=== PATIENT | male | born 2000 | race Caucasian/White ===

== ENCOUNTER 2018-08-08 15:53 | Emergency (ER) | payer BC, SELFPAY ==
[2018-08-08 15:55] VITALS: BP 123/73; PULSE 81; RESP 16; TEMP 36.8; O2SAT 98
--- NOTE | 2018-08-08 16:02 | W.ED.GENAD ---
Discharge Plan Disposition Patient Disposition: HOME Condition: Improving Discharge Details Chief Complaint: Orthopedic Clinical Impression: Closed fracture of right distal radius Primary Care Provider: Tessa,[facility] ED Provider: Noah Cain Home Meds and New Rx's Prescriptions: New hydrocodone-acetaminophen 5-325 mg tablet 1 tab PO Q6H PRN (Reason: pain) Qty: 5 RF: 0 Continued Vyvanse 30 mg Capsule 30 mg PO QAM RF: 0 Viibryd 20 mg Tablet 20 mg PO DAILY RF: 0 Discharge Instructions Instructions: Wrist Fracture in Adults (ED) Additional Instructions: You have an impacted distal radius fracture that is nondisplaced. As we discussed, please call your primary care physician to arrange follow-up with orthopedics in approximately 7-10 days time at home in [place]. Return if you develop increased pain, numbness or tingling of the fingertips, blue fingertips, or any other acute concerns. May use ibuprofen 800 mg with food every 8 hours for pain. May use the prescribed hydrocodone if needed for breakthrough pain. This is a Tylenol containing medicine and you should not use Tylenol with the hydrocodone. You may use Tylenol instead of hydrocodone in addition to ibuprofen. Ice and elevate above the level of the heart to reduce discomfort. 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 Immediate right distal radius pain. He was placed in a splint, ice applied, brought to the emergency department . XRay reveals linear density of the distal radius consistent with an impacted fracture that is nondisplaced. Placed in a volar splint. Patient given analgesia and home pain control discussed with patient's mother Patient is from [place]. He he will follow-up with primary care upon his return in 1 week for referral to orthopedics HPI General Mode of arrival: ambulatory. Date/Time Provider Initiated Documentation: 08/08/18 15:54. Limitations to Documentation: no limitations. Information obtained by: patient. History of Present Illness 17 year old M presents to the emergency department with the chief complaint of R arm pain after fall snowboarding, described as moderate, Quality is described as aching, and is localized to the right and upper extremity. Patient reports no radiation. Patient started experiencing this hour(s) and it has been constant. Cold therapy improves symptom(s), and Immobilization improves symptom(s), Movement worsens symptoms . Patient notes no other symptoms.; denies chest pain, headaches and syncope. Patient did receive the following treatments prior to arrival, NSAID and cold therapy Related Data Home Medications Medication Instructions Recorded Confirmed Viibryd 20 mg PO DAILY 08/08/18 08/08/18 Vyvanse 30 mg PO QAM 08/08/18 08/08/18 hydrocodone-acetaminophen 1 tab PO Q6H PRN #5 tab 08/08/18 Previous Rx's Medication Instructions Recorded hydrocodone-acetaminophen 1 tab PO Q6H PRN #5 tab 08/08/18 Allergies Allergy/AdvReac Type Severity Reaction Status Date / Time No Known Allergies Allergy Unverified 08/08/18 15:59 General Stated Complaint: Orthopedic DAREK: 4 Review of Systems Review of Systems No headache. No loss of consciousness. No neck/back/chest/abdomen pain. No numbness or tingling. 8 systems reviewed and otherwise negative [facility] Medical History ADHD (Acute) Social History Smoking/Tobacco Use Status: Current every day Tobacco Type: e-cigarettes Alcohol Intake: current Alcohol Intake frequency: a few times a month Substance use type: does not use Do you feel safe at home: Yes Do you feel safe in your relationship?: Yes Exam Narrative Exam Narrative: GEN: awake, alert, oriented 3. Pleasant, well groomed, interactive. HEAD: Normocephalic, atraumatic ENT: Mucous membranes moist, oropharynx unremarkable, External ear exam unremarkable EYES: PERRL, EOMI NECK: Full ROM, no KAYLEE, no menigismus CHEST/RESP: Nontender, clear to auscultation bilateral, no wheeze/rhonchi/rales CARDIOVASCULAR: RRR, no murmur, rub demario. 2+ Rad pulse bilateral ABDOMEN: Soft, nontender, no mass. +Bowel sounds EXT: Right upper extremity in sling. Distal radius tenderness. Distal motor intact. Sensation intact throughout Neuro: Grossly normal neurologic exam, conversant, interactive. Psych: Speech fluent, thoughts congruent, affect normal Course Vital Signs Temperature 36.8 C 08/08/18 15:55 Pulse 81 08/08/18 15:55 Respiratory Rate 16 08/08/18 15:55 Blood Pressure 123/73 08/08/18 15:55 Pulse Oximetry 98 08/08/18 15:55 Temperature 36.8 C 08/08/18 15:55 Temperature Source Skin 08/08/18 15:55 Pulse 81 08/08/18 15:55 Respiratory Rate 16 08/08/18 15:55 Respiratory Effort Non-Labored 08/08/18 16:00 Blood Pressure 123/73 08/08/18 15:55 Blood Pressure Position Sitting 08/08/18 15:55 Pulse Oximetry 98 08/08/18 15:55 Oxygen Delivery Method Room Air 08/08/18 15:55 Oxygen Flow Rate 0 08/08/18 15:55 Pain Level 8 08/08/18 15:55 Comment 08/08/18 15:55 Procedures Orthopedic Splinting/Casting Injury #1: Side: right Upper Extremity Injury Location: wrist Upper Extremity Immobilizer: volar spint
--- NOTE | 2018-08-08 16:07 | ED.GENADUL_ITS ---
Discharge Plan Disposition Patient Disposition: HOME Condition: Improving Discharge Details Chief Complaint: Orthopedic Clinical Impression: Closed fracture of right distal radius Primary Care Provider: Tessa,[facility] ED Provider: Noah Cain Home Meds and New Rx's Prescriptions: New hydrocodone-acetaminophen 5-325 mg tablet 1 tab PO Q6H PRN (Reason: pain) Qty: 5 RF: 0 Continued Vyvanse 30 mg Capsule 30 mg PO QAM RF: 0 Viibryd 20 mg Tablet 20 mg PO DAILY RF: 0 Discharge Instructions Instructions: Wrist Fracture in Adults (ED) Additional Instructions: You have an impacted distal radius fracture that is nondisplaced. As we discussed, please call your primary care physician to arrange follow-up with orthopedics in approximately 7-10 days time at home in [place]. Return if you develop increased pain, numbness or tingling of the fingertips, blue fingertips, or any other acute concerns. May use ibuprofen 800 mg with food every 8 hours for pain. May use the prescribed hydrocodone if needed for breakthrough pain. This is a Tylenol containing medicine and you should not use Tylenol with the hydrocodone. You may use Tylenol instead of hydrocodone in addition to ibuprofen. Ice and elevate above the level of the heart to reduce discomfort. 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 Immediate right distal radius pain. He was placed in a splint, ice applied, brought to the emergency department . XRay reveals linear density of the distal radius consistent with an impacted fracture that is nondisplaced. Placed in a volar splint. Patient given analgesia and home pain control discussed with patient's mother Patient is from [place]. He he will follow-up with primary care upon his return in 1 week for referral to orthopedics HPI General Mode of arrival: ambulatory . Date/Time Provider Initiated Documentation: 08/08/18 15:54 . Limitations to Documentation: no limitations . Information obtained by: patient . History of Present Illness 17 year old M presents to the emergency department with the chief complaint of R arm pain after fall snowboarding, described as moderate, Quality is described as aching, and is localized to the right and upper extremity. Patient reports no radiation. Patient started experiencing this hour(s) and it has been constant. Cold therapy improves symptom(s), and Immobilization improves symptom(s), Movement worsens symptoms . Patient notes no other symptoms.; denies chest pain, headaches and syncope. Patient did receive the following treatments prior to arrival, NSAID and cold therapy Related Data Home Medications Medication Instructions Recorded Confirmed Viibryd 20 mg PO DAILY 08/08/18 08/08/18 Vyvanse 30 mg PO QAM 08/08/18 08/08/18 hydrocodone-acetaminophen 1 tab PO Q6H PRN #5 tab 08/08/18 Previous Rx's Medication Instructions Recorded hydrocodone-acetaminophen 1 tab PO Q6H PRN #5 tab 08/08/18 Allergies Allergy/AdvReac Type Severity Reaction Status Date / Time No Known Allergies Allergy Unverified 08/08/18 15:59 General Stated Complaint: Orthopedic DAREK: 4 Review of Systems Review of Systems No headache. No loss of consciousness. No neck/back/chest/abdomen pain. No numbness or tingling. 8 systems reviewed and otherwise negative [facility] Medical History ADHD (Acute) Social History Smoking/Tobacco Use Status: Current every day Tobacco Type: e-cigarettes Alcohol Intake: current Alcohol Intake frequency: a few times a month Substance use type: does not use Do you feel safe at home: Yes Do you feel safe in your relationship?: Yes Exam Narrative Exam Narrative: GEN: awake, alert, oriented 3. Pleasant, well groomed, interactive. HEAD: Normocephalic, atraumatic ENT: Mucous membranes moist, oropharynx unremarkable, External ear exam unremarkable EYES: PERRL, EOMI NECK: Full ROM, no KAYLEE, no menigismus CHEST/RESP: Nontender, clear to auscultation bilateral, no wheeze/rhonchi/rales CARDIOVASCULAR: RRR, no murmur, rub demario. 2+ Rad pulse bilateral ABDOMEN: Soft, nontender, no mass. +Bowel sounds EXT: Right upper extremity in sling. Distal radius tenderness. Distal motor intact. Sensation intact throughout Neuro: Grossly normal neurologic exam, conversant, interactive. Psych: Speech fluent, thoughts congruent, affect normal Course Vital Signs Temperature 36.8 C 08/08/18 15:55 Pulse 81 08/08/18 15:55 Respiratory Rate 16 08/08/18 15:55 Blood Pressure 123/73 08/08/18 15:55 Pulse Oximetry 98 08/08/18 15:55 Temperature 36.8 C 08/08/18 15:55 Temperature Source Skin 08/08/18 15:55 Pulse 81 08/08/18 15:55 Respiratory Rate 16 08/08/18 15:55 Respiratory Effort Non-Labored 08/08/18 16:00 Blood Pressure 123/73 08/08/18 15:55 Blood Pressure Position Sitting 08/08/18 15:55 Pulse Oximetry 98 08/08/18 15:55 Oxygen Delivery Method Room Air 08/08/18 15:55 Oxygen Flow Rate 0 08/08/18 15:55 Pain Level 8 08/08/18 15:55 Comment 08/08/18 15:55 Procedures Orthopedic Splinting/Casting Injury #1: Side: right Upper Extremity Injury Location: wrist Upper Extremity Immobilizer: volar spint
--- NOTE | 2018-08-08 16:10 | DI.RAD_ITS ---
SYMPTOMS/DIAGNOSIS: DISTAL RADIUS PAIN, SNOWBOARDING INJURY RIGHT FOREARM: Two views. There is a mildly impacted fracture involving the distal radial metaphysis. No other fracture or dislocation is appreciated. There is soft tissue swelling at the distal radius. IMPRESSION: Findings most suggestive of a mildly impacted fracture of the distal right radial metaphysis.
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
[2018-08-08] MEDS: HYDROcodone 5/Acetaminophen 325 TAB PO (18:13)
[2018-08-08 18:15] VITALS: BP 142/57; PULSE 74; RESP 18; TEMP 36.9; O2SAT 100
== END 2018-08-08 18:21 | disposition home or self-care (01) ==
PROVIDERS: Emergency Provider Emergency Medicine
DX: S52.591A Other fractures of lower end of right radius, initial encounter for closed fracture (principal); V00.311A Fall from snowboard, initial encounter
CPT/HCPCS: 25600; 73090; L3650